=== PATIENT | female | born 1950 | race Caucasian/White ===

== ENCOUNTER → 2017-08-05 | Outpatient (CLI) | payer BC ==
[2017-08-05 10:44] LABS: Basophils # (A) 0.1 k/uL (0-0.2); Basophils % (A) 1 %; CH 27.5; CHCM 31.6; Eosinophils # (A) 0.4 k/uL (0-0.7); Eosinophils % (A) 3 %; HCT 45.8 % (34.0-46.0); HDW 2.57; HGB 14.3 gm/dL (11.4-16.0); Luc # (Auto) 0.16; Luc % (Auto) 1; Lymphocytes # (A) 2.2 k/uL (1.0-4.8); Lymphocytes % (A) 17 %; MCH 27.3 pg (25.0-35.0); MCHC 31.2 g/dL (31.0-37.0); MCV 87.3 fL (80.0-100.0); Mean Platelet Volume 8.8; Monocytes # (A) 0.8 k/uL (0-1.0); Monocytes % (A) 6 %; Neutrophils # (A) 9.2 k/uL (1.3-7.7); Neutrophils % (A) 72 %; RBC 5.25 m/uL (3.80-5.40); RDW 14.1 % (11.5-15.5); WBC 12.9 k/uL (3.8-10.6)
[2017-08-05 10:50] LABS: Appearance,Urine Clear (Clear); Bacteria,Urine Occasional /hpf; Bilirubin,Urine Negative (Negative); Glucose,Urine (UA) 4+ (Negative); Ketones,Urine Negative (Negative); Leukocyte Esterase,Urine Trace (Negative); Mucus,Urine Occasional /hpf; Nitrite,Urine Negative (Negative); PH, Urine 5.5 (5.0-8.0); Particle Count 5574; Protein,Urine 1+ (Negative); RBC,Urine 2 /hpf (0-5); Specific Gravity,Urine 1.022 (1.001-1.035); Squamous Epithelial Cell,Urine 4 /hpf (0-4); UA Billing (MACRO vs. MICRO) MICRO; WBC,Urine 2 /hpf (0-5)
[2017-08-05 10:58] LABS: ALT 62 U/L (9-52); AST 23 U/L (14-36); Alkaline Phosphatase 164 U/L (38-126); Anion Gap 13 mmol/L; Blood Urea Nitrogen 10 mg/dL (7-17); Calcium 9.3 mg/dL (8.4-10.2); Carbon Dioxide 26 mmol/L (22-30); Chloride 102 mmol/L (98-107); Cholesterol 111 mg/dL (<200); Glucose 265 mg/dL (74-99); HDL Cholesterol 49 mg/dL (40-60); Non-African American GFR(MDRD) >60 (>60 ml/min/1.73 sqM); Potassium 4.6 mmol/L (3.5-5.1); Sodium 141 mmol/L (137-145); Total Bilirubin 0.3 mg/dL (0.2-1.3); Total Protein 6.5 g/dL (6.3-8.2)
== END | disposition home or self-care (01) ==
LOC: LABWHC1 10:16
PROVIDERS: ATTEND Family Medicine
DX: E11.9 Type 2 diabetes mellitus without complications (principal); I10 Essential (primary) hypertension; Z11.59 Encounter for screening for other viral diseases
CPT/HCPCS: 36415; 80053; 80061; 80074; 81001; 83036; 84443; 85025; 87390

== ENCOUNTER → 2018-06-26 | Outpatient (CLI) | payer MEDICARE, OTHER ==
--- NOTE | 2018-06-27 12:12 | MM ---
Reason for exam: screening (asymptomatic). Last mammogram was performed 15 years ago. History: Patient is postmenopausal and is nulliparous. Family history of breast cancer in maternal grandmother. Physical Findings: A clinical breast exam by your physician is recommended on an annual basis and results should be correlated with mammographic findings. MG Screening Mammo w CAD Bilateral CC and MLO view(s) were taken. No prior studies available for comparison. The breast tissue is heterogeneously dense. This may lower the sensitivity of mammography. Stable benign calcifications. There is no discrete abnormality. No significant changes when compared with prior studies. ASSESSMENT: Benign, BI-RAD 2 RECOMMENDATION: Routine screening mammogram of both breasts in 1 year.
== END | disposition home or self-care (01) ==
LOC: RADMAMWWP 09:36
PROVIDERS: ATTEND Nurse Practitioner Family
DX: Z12.31 Encounter for screening mammogram for malignant neoplasm of breast (principal)
CPT/HCPCS: 77067

== ENCOUNTER 2021-08-06 08:50 | Emergency (ER) | payer MEDICARE, OTHER ==
--- NOTE | 2021-08-06 09:35 | ED ---
General Adult HPI - General Chief complaint: Fall Stated complaint: Fall Time Seen by Provider: 08/06/21 08:57 Source: patient Mode of arrival: wheelchair Limitations: physical limitation - History of Present Illness Initial comments: Dictation was produced using [employer] dictation software. please excuse any grammatical, word or spelling errors. Chief Complaint: 70-year-old female presents with shoulder pain and neck pain after fall History of Present Illness: Patient is 70-year-old female she has chronic vertigo. She presents to emergency department after fall. She fell last night. She is try to put her pants on when she lost her balance. Patient states that she has chronic balance issues. She fell landing sideways. She landed on her right shoulder. Since a fall she is had neck pain and right shoulder pain. Last that she did feel as well but this morning she felt very stiff around her right shoulder and right neck area. Denies any loss of consciousness. The ROS documented in this emergency department record has been reviewed and confirmed by me. Those systems with pertinent positive or negative responses h ave been documented in the HPI. All other systems are other negative and/or noncontributory. PHYSICAL EXAM: General Impression: Alert and oriented x3, not in acute distress HEENT: Normocephalic atraumatic, extra-ocular movements intact, pupils equal and reactive to light bilaterally, mucous membranes moist. Cardiovascular: Heart regular rate and rhythm Chest: Able to complete full sentences, no retractions, no tachypnea Abdomen: abdomen soft, non-tender, non-distended, no organomegaly Musculoskeletal: Pulses present and equal in all extremities, no peripheral edema, tenderness to palpation over her right clavicle in the mid and lateral portion, tenderness to palpation over the right trapezius Motor: no focal deficits noted Neurological: CN II-XII grossly intact, no focal motor or sensory deficits noted Skin: Intact with no visualized rashes Psych: Normal affect and mood ED course: 70-year-old female presents with neck pain and right shoulder pain after fall. Vital signs upon arrival are within acceptable limits. Patient takes aspirin. EKG interpretation: Ventricular rate 65, normal sinus rhythm,. 160, QRS 70, QTc 457. No WI prolongation, no QTC prolongation, no ST or T-wave changes noted. Overall, this EKG is unremarkable Patient given IV analgesics. Computed tomography scan of the head and C-spine shows no acute processes. Shoulder x-ray shows acromial clavicular joint degeneration.Patient given analgesics with improvement of blood pressure. Patient placed in a sling counseled on shoulder exercises to maintain range of motion. Patient's agreeable plan. Patient feels at baseline. Discharged - Related Data Home Medications Medication Instructions Recorded Confirmed Aspirin EC [Ecotrin Low Dose] 81 mg PO BID 08/06/21 08/06/21 Atorvastatin [Lipitor] 80 mg PO HS 08/06/21 08/06/21 Clobetasol Propionate [Temovate 1 applic TOPICAL BID PRN 08/06/21 08/06/21 0.05% Cream] Dapagliflozin Propanediol [Farxiga] 5 mg PO HS 08/06/21 08/06/21 Metoprolol Tartrate [Lopressor] 50 mg PO BID 08/06/21 08/06/21 Omeprazole 40 mg PO HS 08/06/21 08/06/21 Repaglinide [Prandin] 2 mg PO TID 08/06/21 08/06/21 lisinopriL [Zestril] 5 mg PO DAILY 08/06/21 08/06/21 metFORMIN HCL [Glucophage] 1,000 mg PO HS 08/06/21 08/06/21 Allergies Allergy/AdvReac Type Severity Reaction Status Date / Time No Known Allergies Allergy Verified 08/06/21 10:05 Review of Systems ROS Statement: Those systems with pertinent positive or pertinent negative responses have been documented in the HPI. ROS Other: All systems not noted in ROS Statement are negative. Past Medical History Past Medical History: Hypertension, Myocardial Infarction (CO) History of Any Multi-Drug Resistant Organisms: None Reported Past Surgical History: Appendectomy, Cholecystectomy, Coronary Bypass/CABG, Tubal Ligation Past Psychological History: No Psychological Hx Reported Smoking Status: Former smoker Past Alcohol Use History: None Reported Past Drug Use History: None Reported General Exam Limitations: physical limitation Course Vital Signs 08/06/21 08:56 Temperature 97.5 F L Pulse Rate 75 Respiratory 17 Rate Blood Pressure 201/69 O2 Sat by Pulse 95 Oximetry Disposition Clinical Impression: Shoulder strain, Fall Disposition: HOME SELF-CARE Condition: Good Instructions (If sedation given, give patient instructions): Fall Prevention for Older Adults (ED) Is patient prescribed a controlled substance at d/c from ED?: No Referrals: Ilya Mccray MD [Primary Care Provider] - 1-2 days
--- NOTE | 2021-08-06 10:00 | CT ---
EXAMINATION TYPE: CT brain dinoraine wo con DATE OF EXAM: 08/06/2021 COMPARISON: None HISTORY: Fall CT DLP: 1443.2 mGycm Automated exposure control for dose reduction was used. TECHNIQUE: CT scan of the head and cervical spine are performed without contrast. FINDINGS: There is no acute intracranial hemorrhage, mass effect, or midline shift identified. The ventricles and sulci are within normal limits in size. The globes are intact and the visualized sin uses are clear. There is probable mild chronic ischemic white matter demyelination. Cervical spine is visualized in its entirety from C1 through upper thoracic levels and demonstrates s atisfactory alignment without evidence of acute fracture or dislocation. Prevertebral soft tissue ap pears within normal limits. The C1-C2 articulation is unremarkable. 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 IMPRESSION: 1. There is no acute fracture or dislocation evident in the cervical spine. 2. No acute intracranial hemorrhage, mass effect, or midline shift is seen.
--- NOTE | 2021-08-06 10:01 | XR ---
Right shoulder. HISTORY: Fall COMPARISON: None TECHNIQUE: 3 views the right shoulder were obtained. There is no fracture, dislocation or focal intraosseous abnormality. There is mild degeneration of th e acromioclavicular joint. There is no radiopaque foreign body or abnormal soft tissue calcification. IMPRESSION: No evidence of acute trauma. Mild AC degeneration.
[2021-08-06] MEDS ORDERED: MORPHINE SULFATE 4 MG/ML SYRINGE IM STA (10:56)
[2021-08-06 10:57] VITALS: BP 165/87; PULSE 18; RESP 87; TEMP 98.2
--- NOTE | 2021-08-06 11:04 | ED ---
Disposition Clinical Impression: Shoulder strain, Fall Disposition: HOME SELF-CARE Condition: Good Instructions (If sedation given, give patient instructions): Fall Prevention for Older Adults (ED) Prescriptions: Cyclobenzaprine [Flexeril] 10 mg PO TID PRN #20 tab PRN Reason: Muscle Spasm Is patient prescribed a controlled substance at d/c from ED?: No Referrals: Ilya Mccray MD [Primary Care Provider] - 1-2 days
== END 2021-08-06 11:04 | disposition home or self-care (01) ==
LOC: EC 08:50
DX: S46.911A Strain of unspecified muscle, fascia and tendon at shoulder and upper arm level, right arm, initial encounter (principal); I10 Essential (primary) hypertension; I25.2 Old myocardial infarction; Z90.49 Acquired absence of other specified parts of digestive tract; Z95.1 Presence of aortocoronary bypass graft; Z98.51 Tubal ligation status; Z87.891 Personal history of nicotine dependence; Z79.82 Long term (current) use of aspirin; Z79.84 Long term (current) use of oral hypoglycemic drugs; W01.0XXA Fall on same level from slipping, tripping and stumbling without subsequent striking against object, initial encounter
CPT/HCPCS: 99284; 96372; 93005; 73030; 72125; 70450; J2270

== ENCOUNTER → 2022-07-04 | Outpatient (CLI) | payer MEDICARE, OTHER ==
--- NOTE | 2022-07-05 09:15 | MM ---
Reason for Exam: Screening (asymptomatic). Last mammogram was performed 4 year(s) and 0 month(s) ago. Patient History: Menarche at age 15. Patient has no children. Postmenopausal. Maternal grandmother had breast cancer. Risk Values: Maddison 5 year model risk: 1.9%. NCI Lifetime model risk: 5.9%. Prior Study Comparison: 04/25/2002 Bilateral Screening Mammogram, [facility]. 06/30/2003 Bilateral Screening Mammogram, [facility]. 06/26/2018 Bilateral Screening Mammogram, [facility]. Tissue Density: The breast tissue is heterogeneously dense. This may lower the sensitivity of mammography. Findings: Analyzed By CAD. There is no suspicious group of microcalcifications or new suspicious mass in either breast. Stable benign calcifications in both breasts. No significant change from prior exams. Overall Assessment: Benign, BI-RAD 2 Management: Screening Mammogram of both breasts in 1 year. A clinical breast exam by your physician is recommended on an annual basis and results should be correlated with mammographic findings. Electronically signed and approved by: Antonio Mckenzie D.O.
== END | disposition home or self-care (01) ==
LOC: RADMAMWWP 16:30
PROVIDERS: ATTEND Family Medicine
DX: Z12.31 Encounter for screening mammogram for malignant neoplasm of breast (principal); Z78.0 Asymptomatic menopausal state; Z80.3 Family history of malignant neoplasm of breast
CPT/HCPCS: 77063; 77067

== ENCOUNTER → 2022-07-05 | Outpatient (CLI) | payer MEDICARE, OTHER ==
--- NOTE | 2022-07-06 07:36 | US ---
EXAMINATION TYPE: US carotid duplex BILAT DATE OF EXAM: 07/05/2022 COMPARISON: NONE CLINICAL HISTORY: Carotid bruit TECHNIQUE: Carotid duplex ultrasound examination. Indirect Doppler criteria was utilized. FINDINGS: EXAM MEASUREMENTS: RIGHT: Peak Systolic Velocity (PSV) cm/sec ----- Right CCA: 103 ----- Right ICA: 75.0 ----- Right ECA: 138 ICA/CCA ratio: 0.73 RIGHT: End Diastole cm/sec ----- Right CCA: 16.9 ----- Right ICA: 14.8 ----- Right ECA: 10.8 LEFT: Peak Systolic Velocity (PSV) cm/sec ----- Left CCA: 57.3 ----- Left ICA: 80.6 ----- Left ECA: 181 ICA/CCA ratio: 1.4 LEFT: End Diastole cm/sec ----- Left CCA: 10.4 ----- Left ICA: 24.0 ----- Left ECA: 16.2 VERTEBRALS (direction of flow): Right Vertebral: Antegrade Left Vertebral: Not visualized CODING COORDINATOR NOTES: Exam limited by patient body habitus, high bifurcation bilaterally. IMPRESSION: Less than 50% stenosis bilateral carotid bifurcations. Criteria for Assigning % of Stenosis / Diameter reduction (Estimation based on the indirect measurements of the internal carotid artery velocities (ICA PSV). 1. Normal (no stenosis)=ICA PSV < 125 cm/s: ratio < 2.0: ICA EDV<40 cm/s. 2. Less than 50% stenosis=ICA PSV < 125 cm/s: ratio < 2.0: ICA EDV<40 cm/s. 3. 50 to 69% stenosis=ICA PSV of 125 to 230 cm/s: ration 2.0 ? 4.0: ICA EDV 40-100 cm/s. 4. Greater than 70% stenosis to near occlusion= ICA PSV > 230 cm/s: ratio > 4.0: ICA EDV > 100 cm/s. 5. Near occlusion= ICA PSV velocities may be low or undetectable: variable ratio and ICA EDV. 6. Total occlusion=unable to detect flow.
== END | disposition home or self-care (01) ==
LOC: RADUSWWP 15:45
PROVIDERS: ATTEND Family Medicine
DX: I65.23 Occlusion and stenosis of bilateral carotid arteries (principal)
CPT/HCPCS: 93880

== ENCOUNTER → 2022-07-17 | Outpatient (CLI) | payer MEDICARE, OTHER ==
[~2022-07-17] MED LIST: DENOSUMAB 60 MG/ML 1 ML SYRINGE SQ NR
[2022-07-17 14:09] VITALS: BP 108/77; PULSE 99; RESP 16; TEMP 98.6
== END | disposition home or self-care (01) ==
LOC: PROCWHC3 13:43
PROVIDERS: ATTEND Family Medicine
DX: M81.0 Age-related osteoporosis without current pathological fracture (principal)
CPT/HCPCS: 96372; J0897

== ENCOUNTER → 2022-12-06 | Outpatient (CLI) | payer MEDICARE, OTHER ==
--- NOTE | 2022-12-06 11:38 | US ---
EXAMINATION TYPE: US carotid duplex BILAT DATE OF EXAM: 12/06/2022 COMPARISON: NONE CLINICAL INDICATION: Female, 72 years old with history of R09.89 OT SYMPTOMS AND SIGNS INVOLVING THE CIRC A; TECHNIQUE: Carotid duplex ultrasound examination. Indirect Doppler criteria was utilized. FINDINGS: EXAM MEASUREMENTS: RIGHT: Peak Systolic Velocity (PSV) cm/sec ----- Right CCA: 75.5 ----- Right ICA: 136 ----- Right ECA: 193 ICA/CCA ratio: 1.9 RIGHT: End Diastole cm/sec ----- Right CCA: 11.6 ----- Right ICA: 28.4 ----- Right ECA: 17.3 LEFT: Peak Systolic Velocity (PSV) cm/sec ----- Left CCA: 59.2 ----- Left ICA: 82.3 ----- Left ECA: 384 ICA/CCA ratio: 1.4 LEFT: End Diastole cm/sec ----- Left CCA: 12.4 ----- Left ICA: 56.2 ----- Left ECA: 17.1 VERTEBRALS (direction of flow): Right Vertebral: Antegrade Left Vertebral: Antegrade Rhythm: Normal MATZO FORMING MACHINE OPERATOR NOTES: Bilateral heterogeneous plaque. Increased velocities seen within proximal Left ECA IMPRESSION: 1. No ultrasound evidence of hemodynamically significant stenosis within the bilateral internal carot id arteries. 2. Mild stenosis of the origin of the left external carotid artery. Criteria for Assigning % of Stenosis / Diameter reduction (Estimation based on the indirect measurements of the internal carotid artery velocities (ICA PSV). 1. Normal (no stenosis)=ICA PSV < 125 cm/s: ratio < 2.0: ICA EDV<40 cm/s. 2. Less than 50% stenosis=ICA PSV < 125 cm/s: ratio < 2.0: ICA EDV<40 cm/s. 3. 50 to 69% stenosis=ICA PSV of 125 to 230 cm/s: ration 2.0 ? 4.0: ICA EDV 40-100 cm/s. 4. Greater than 70% stenosis to near occlusion= ICA PSV > 230 cm/s: ratio > 4.0: ICA EDV > 100 cm/s. 5. Near occlusion= ICA PSV velocities may be low or undetectable: variable ratio and ICA EDV. 6. Total occlusion=unable to detect flow.
== END | disposition home or self-care (01) ==
LOC: RADUSWWP 10:37
PROVIDERS: ATTEND Family Medicine
DX: I65.22 Occlusion and stenosis of left carotid artery (principal); R09.89 Other specified symptoms and signs involving the circulatory and respiratory systems
CPT/HCPCS: 93880

== ENCOUNTER → 2024-02-24 | Outpatient (CLI) | payer MEDICARE, OTHER ==
--- NOTE | 2024-02-24 10:13 | CTL ---
EXAMINATION TYPE: CT Low Dose Lung DATE OF EXAM ORDERED: 02/24/2024 HISTORY: 73-year-old female current smoker with 40 pack-year history. Lung cancer screening CT DLP: 82.[address] CTDI: 2.4 mGy Automated exposure control for dose reduction was used. SCREENING VISIT: Baseline COMPARISON: None TECHNIQUE: Low dose computed tomography scan was performed through the chest at 1 mm thick sections a nd reconstructed images in multiple planes at 1 mm and [address] DIAGNOSTIC QUALITY: Satisfactory FINDINGS: There are median sternotomy wires and post-CABG clips. Dense mitral annular calcifications present. H eart normal size without pericardial effusion. Aorta normal caliber with mild to moderate atherosclerotic arch calcifications and metatarsal branchi ng anatomy. No thoracic lymphadenopathy by CT size criteria. Some scattered strandy areas of scarring or atelectasis in the mid and lower lungs. Mild emphysematou s change. No consolidation or pleural effusion. Some scattered tiny calcified granulomas on both sides. No suspicious larger than 4 mm pulmonary nodu le is identified. Visualized upper abdomen shows cholecystectomy clips. Bones: Anterior endplate spondylosis lower thoracic spine. IMPRESSION: 1. LungRADS 2, benign. Scattered tiny calcified granulomas compatible with prior granulomatous diseas e. 2. COPD with mild emphysema. Recommend smoking cessation. CT LUNG RAD AND CT CHEST RECOMMENDATION: Lung-Rad 2 Benign Appearance or Behavior: Continue annual sc reening with LDCT in 12 months. S Modifier (other clinically significant findings): None
== END | disposition home or self-care (01) ==
LOC: RADCTMAIN 09:38
PROVIDERS: ATTEND Family Medicine
DX: Z12.2 Encounter for screening for malignant neoplasm of respiratory organs (principal); J43.9 Emphysema, unspecified; J44.9 Chronic obstructive pulmonary disease, unspecified; J84.10 Pulmonary fibrosis, unspecified; Z87.891 Personal history of nicotine dependence
CPT/HCPCS: 71271

== ENCOUNTER → 2024-08-27 | Outpatient (CLI) | payer MEDICARE, OTHER ==
--- NOTE | 2024-08-27 11:24 | US ---
EXAMINATION TYPE: US carotid duplex BILAT DATE OF EXAM: 08/27/2024 COMPARISON: US 2022 CLINICAL INDICATION: Female, 73 years old with history of I65.29 OCCLUSION AND STENOSIS OF UNSPECIFED CAROTI; Stenosis per order. *Patient scanned sitting upright- she states that when she lays flat she gets dizzy. Hx diabetes, hypertension, hyperlipidemia, prior smoker. Additional History: .... TECHNIQUE: Grayscale, color Doppler and spectral Doppler evaluation of the bilateral carotid systems and vertebral arteries. Indirect Doppler criteria was utilized. FINDINGS: EXAM MEASUREMENTS: RIGHT: Peak Systolic Velocity (PSV) cm/sec ----- Right CCA: 97.4 ----- Right ICA: 121.0 ----- Right ECA: 255.9 ICA/CCA ratio: 1.2 RIGHT: End Diastole cm/sec ----- Right CCA: 16.0 ----- Right ICA: 27.3 ----- Right ECA: 0.0 LEFT: Peak Systolic Velocity (PSV) cm/sec ----- Left CCA: 60.9 ----- Left ICA: 55.7 ----- Left ECA: 317.1 ICA/CCA ratio: 0.9 LEFT: End Diastole cm/sec ----- Left CCA: 14.0 ----- Left ICA: 13.0 ----- Left ECA: 17.7 VERTEBRALS (direction of flow): Right Vertebral: Antegrade Left Vertebral: Unable to visualize Rhythm: Arrhythmia BANK COMPLIANCE OFFICER NOTES: Unable to visualize left vertebral artery. Elevated velocities within bilateral EC As*. *Extensive plaque seen within bilateral carotid arteries, bilateral bulbs, and bilateral bifurca tions. More plaque seen within the right carotid system. Narrowing seen within right ICA. IMPRESSION: 1. Moderate atherosclerotic changes in the bilateral carotid systems. No hemodynamically significant internal carotid artery stenosis on either side. 2. Elevated bilateral ECA velocities suggesting underlying atherosclerotic stenoses of the ECAs. 3. Unable to visualize the left vertebral artery. Criteria for Assigning % of Stenosis / Diameter reduction (Estimation based on the indirect measurements of the internal carotid artery velocities (ICA PSV). 1. Normal (no stenosis)=ICA PSV < 125 cm/s: ratio < 2.0: ICA EDV<40 cm/s. 2. Less than 50% stenosis=ICA PSV < 125 cm/s: ratio < 2.0: ICA EDV<40 cm/s. 3. 50 to 69% stenosis=ICA PSV of 125 to 230 cm/s: ration 2.0 ? 4.0: ICA EDV 40-100 cm/s. 4. Greater than 70% stenosis to near occlusion= ICA PSV > 230 cm/s: ratio > 4.0: ICA EDV > 100 cm/s. 5. Near occlusion= ICA PSV velocities may be low or undetectable: variable ratio and ICA EDV. 6. Total occlusion=unable to detect flow. [facility], , 08/27/2024 11:21 AM
== END | disposition home or self-care (01) ==
LOC: RADUSWWP 10:08
PROVIDERS: ATTEND Family Medicine
DX: I65.23 Occlusion and stenosis of bilateral carotid arteries (principal); E78.5 Hyperlipidemia, unspecified; I10 Essential (primary) hypertension
CPT/HCPCS: 93880

== ENCOUNTER → 2025-02-23 | Outpatient (CLI) | payer MEDICARE, OTHER ==
--- NOTE | 2025-02-23 12:45 | CTL ---
EXAMINATION TYPE: CT Low Dose Lung DATE OF EXAM: 02/23/2025 11:51 AM COMPARISON: 02/24/2024. CLINICAL INDICATION: Female, 74 years old with history of Z87.891 Nicotine dependence; personal tobac co use, history of tobacco use. TECHNIQUE: Multiple axial non-contrast scans were obtained from approximately the lung apices through the upper abdomen. Coronal and sagittal reformatted images were obtained. Low dose technique was uti lized. MIP were created on a separate workstation and submitted for review. CT DLP: 78.1 mGycm, Automated exposure control for dose reduction was used. CT Contrast: Contrast used: None Oral contrast used: None FINDINGS: Lack of intravenous contrast and low dose technique limits the evaluation of the vascular and soft ti ssue structures. LUNGS: No evidence of pulmonary fibrosis. No evidence of focal consolidation, pneumothorax or pleural effusion. Centrilobular emphysema changes. Nodules: RUL: None. RML: None. RLL: None. SE: None. LLL: Calcified granulomas in the left lung base series 3 image 139 and image 179. AIRWAY: Patent and unremarkable. HEART: Cardiomegaly is demonstrated. 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 Moderate coronar y artery calcifications present. MEDIASTINUM: No gross evidence of adenopathy. VASCULATURE: No aortic aneurysm. MUSCULOSKELETAL: Moderate disc degeneration changes are present throughout the thoracolumbar spine. S ternotomy wires are present. SOFT TISSUES/LYMPH NODES: Unremarkable. LOWER NECK: No significant findings. UPPER ABDOMEN: Cholecystomy clips. IMPRESSION: 1. No clinically significant pulmonary nodules. 2. Mild emphysema. CT LUNG RAD AND CT CHEST RECOMMENDATION: Lung-Rad 2 Benign Appearance or Behavior: Continue annual sc reening with LDCT in 12 months. S Modifier (other clinically significant findings): None Recommend smoking cessation (if current smoker), or continuation of smoking cessation (if prior smoke r). Annual screening for lung cancer with low-dose computed tomography is recommended in adults ages 55 to 77 years who have a 30 pack-year smoking history and currently smoke or have quit within the pa st 15 years. Screening should be discontinued once a person has not smoked for 15 years or develops a health problem that substantially limits life expectancy or the ability or willingness to have curat gustavo lung surgery. Lung rads 2021 [email or web address] [email or web address], , 02/23/2025 12:43 PM
== END | disposition home or self-care (01) ==
LOC: RADCTMAIN 10:48
DX: Z12.2 Encounter for screening for malignant neoplasm of respiratory organs (principal); J43.2 Centrilobular emphysema; Z87.891 Personal history of nicotine dependence
CPT/HCPCS: 71271